=== PATIENT | female | born 1980 | race Caucasian/White ===

== ENCOUNTER 2021-02-22 08:03 | Day surgery (SDC) | payer OTHER ==
[2021-02-17 11:10] VITALS: BMI 30.2
[2021-02-22 08:32] VITALS: TEMP 97.1
[2021-02-22] MEDS ORDERED: LACTATED RINGERS 1,000 ML IV ONE (08:36)
[2021-02-22] MEDS ORDERED: LIDOCAINE 1% (10MG/ML) FOR IV START INTRADERMA ONE (08:37)
[2021-02-22] MEDS ORDERED: LIDOCAINE 1% INJ 10MG/ML (20 ML MDV) ONE (08:45)
[2021-02-22] MEDS ORDERED: PROPOFOL 10 MG/ML 20 ML VIAL IV ONE (08:45)
--- NOTE | 2021-02-22 09:22 | P.PCN ---
Date of Procedure: 02/22/21 Description of Procedure: BRIEF HISTORY: Patient is a 41-year-old female presenting for outpatient colonoscopy for evaluation of chronic diarrhea/diarrhea. 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 This was diagnosed of the state years ago. She reports fluctuation in bowel habits anywhere from 4-8 daily bowel movements with alternating constipation. PROCEDURE PERFORMED: Colonoscopy with biopsy. PREOPERATIVE DIAGNOSIS: chronic diarrhea, diarrhea, she reports a remote history of colonoscopy. ESTIMATED BLOOD LOSS: Minimal. IV sedation per Anesthesia. PROCEDURE: After informed consent was obtained, the patient, was brought into the endoscopy unit. IV sedation was administered by Anesthesia under continuous monitoring. Digital rectal examination was normal. Initially the Olympus CF-190 flexible video colonoscope was then inserted in the rectum, gradually advanced into the cecum without any difficulty. Careful examination was performed as the scope was gradually being withdrawn. Ileocecal valve and the appendiceal orifice were visualized and appeared normal. Prep was excellent. Mucosa of the cecum, ascending colon, transverse colon, descending colon, sigmoid colon, and rectum appeared normal, with biopsies taken of the right and left colon in the setting of altered bowel function and diarrhea. The terminal ileum appeared normal with biopsies taken. Retroflexion was performed in the rectum and no lesions were seen, low-grade internal hemorrhoids. The patient tolerated the procedure well. IMPRESSION: Normal-appearing colon from rectum to cecum and normal-appearing terminal ileum with random biopsies taken of the terminal ileum, right colon and left colon. Internal hemorrhoids area. RECOMMENDATIONS: Findings of this examination were discussed with the patient and her family. Okay to resume diet. Okay to resume medications. Await pathology from biopsies. Follow up in the GI clinic as scheduled.
[2021-02-22 09:42] VITALS: BP 122/79; PULSE 76; RESP 16
== END 2021-02-22 10:04 | disposition home or self-care (01) ==
LOC: ORWHC2ENDO 08:03
PROVIDERS: ATTEND Internal Medicine
DX: K52.9 Noninfective gastroenteritis and colitis, unspecified (principal); K59.00 Constipation, unspecified; K64.8 Other hemorrhoids; Z88.8 Allergy status to other drugs, medicaments and biological substances
CPT/HCPCS: 88305; 45380; J2001; J2704